=== PATIENT | male | born 1945 | race Caucasian/White ===

== ENCOUNTER 2019-11-13 20:45 | Observation (INO) | payer OTHER, SELFPAY ==
--- NOTE | ~2019-11-13 | CT_ITS ---
EXAMINATION: CT brain wo con, CT cervical spine wo con EXAM DATE: 11/13/2019 21:44 (accession [id number]), 11/13/2019 21:46 (accession [id number]) INDICATION: Syncope. Confusion. TECHNIQUE: Spiral CT of the head was performed without contrast. Axial, coronal and sagittal images were reviewed. Spiral CT of the cervical spine was performed without contrast. Axial images were rev iewed. Coronal and sagittal reformatted images were also reviewed. The dose-length product (DLP) fo r this examination was 681.00 (accession [id number]), 516.59 (accession [id number]) mGy-cm. The exposure was tailored according to patient size, and iterative reconstruction (ASIR) was used as additional dose reduction technique. There is no prior study for comparison. FINDINGS: HEAD CT: There is no acute intraparenchymal hemorrhage. No evidence of intraparenchymal brain mass l esion. No evidence of acute infarction. There is moderate periventricular and subcortical hypodensit y, nonspecific but probably related to small vessel ischemic disease. There is moderate prominence of the sulci and ventricles related to cerebral atrophy. There is intracranial carotid arterioscler osis. There is no mass effect or midline shift. There is no obstructive hydrocephalus suspected. T here are no extra-axial collections. There are no acute calvarial fractures. The orbits are unremar kable. Soft tissue is unremarkable. There is left mastoid effusion. CERVICAL CT: Mild emphysema. There is no evidence of acute cervical fracture. The odontoid process i s intact. Pre-dens space is normal. Prevertebral soft tissue is normal. There are no soft tissue a bnormalities identified. There is no disc space widening or traumatic vertebral body subluxation raymond pected. There is moderate to severe cervical disc disease and arthropathy. A detailed level by denny lewis evaluation of spondylosis can be added as addendum if requested. IMPRESSION: 1. No acute intracranial or cervical findings. 2. Age-related intracranial findings. 3. Cervical spondylosis. Reviewed, dictated and finalized at location A. IMPRESSION: 1. No acute intracranial or cervical findings. 2. Age-related intracranial findings. 3. Cervical spondylosis.
--- NOTE | ~2019-11-13 | XR_ITS ---
EXAMINATION: XR chest 1V portable EXAM DATE: 11/13/2019 21:45 INDICATION: Syncope. TECHNIQUE: Portable AP frontal chest x-ray was obtained. There is no prior study for comparison. FINDINGS: The lungs are clear. There are no pleural effusions. Cardiac silhouette is prominent but magnified on this AP technique. There is no pneumothorax suspected. There are bony degenerative ch anges. There is aortic arterial sclerosis. IMPRESSION: No acute cardiopulmonary findings. Reviewed, dictated and finalized at location A.
[2019-11-13 21:00] VITALS: BP 133/78; PULSE 63; RESP 22; TEMP 35.7; O2SAT 92
--- NOTE | 2019-11-13 21:00 | ECG_ITS ---
Measurements Intervals [place] Rate: 55 P: 71 GA: 161 QRS: 71 QRSD: 81 T: 61 QT: 447 QTc: 430 Interpretive Statements SINUS BRADYCARDIA ATRIAL PREMATURE COMPLEXES INCOMPLETE RIGHT BUNDLE BRANCH BLOCK DELAYED PRECORDIAL R/S TRANSITION BASELINE ARTIFACT- I, II, III, AVR, AVL, AVF, V1-V6 BORDERLINE ECG Electronically Signed On 11-14-2019 13:49:33 CDT by Demar Shelley D.O.
[2019-11-13] MEDS: SODIUM CHLORIDE 0.9% IV 1,000 ML 999 ML IV CONT (21:10)
[2019-11-13 21:21] LABS: Basophils Absolute Auto 0.02 K/mm3 (0.00-0.10); Basophils Percent Auto 0.2 % (0.0-1.0); Eosinophils Absolute Auto 0.02 K/mm3 (0.02-0.50); Eosinophils Percent Auto 0.2 % (1.0-6.0); Hematocrit 49.4 % (37.0-46.0); Hemoglobin 16.4 g/dL (12.4-15.3); Immature Granulocyte Absolute 0.05 K/mm3 (0.00-0.00); Immature Granulocyte Percent A 0.6 % (0.0-0.0); Lymphocytes Absolute Auto 0.84 K/mm3 (1.10-4.50); Lymphocytes Percent Auto 9.9 % (18.0-42.0); Mean Corpuscular HGB Conc 33.2 g/dL (32.0-36.0); Mean Corpuscular Hemoglobin 30.6 pg (27.0-31.0); Mean Corpuscular Volume 92.2 fL (78.0-102.0); Mean Platelet Volume 10.1 fl (8.7-11.0); Monocytes Absolute Auto 0.58 K/mm3 (0.10-0.90); Monocytes Percent Auto 6.8 % (2.0-11.0); Neutrophils Percent Auto 82.3 % (50.0-70.0); Platelet Count Result 140 K/mm3 (150-420); Red Blood Count 5.36 M/mm3 (4.70-6.10); Red Cell Distribution Width 13.4 % (11.6-14.4); White Blood Count 8.5 K/mm3 (4.8-10.8)
[2019-11-13 21:34] LABS: Partial Thromboplastin Time 27.9 SEC (22.3-31.6); Prothrombin Time 10.3 Seconds (9.64-11.0)
[2019-11-13 21:38] LABS: Influenza Control Valid (Valid)
[2019-11-13 21:43] LABS: Alanine Aminotransferase 47 U/L (16-63); Albumin Level 2.8 g/dL (3.4-5.0); Alkaline Phosphatase 111 U/L (46-116); Anion Gap 14.9 mmol/L (7-16); Aspartate Amino Transferase 78 U/L (15-37); Bilirubin,Total 0.6 mg/dL (0.00-1.00); Blood Urea Nitrogen 7 mg/dL (7-18); Calcium 8.2 mg/dL (8.5-10.1); Carbon Dioxide 28 mmol/L (21-32); Chloride 93 mmol/L (98-108); Creatine Kinase 214 U/L (39-308); Estimated Glomerular Filt Rate > 60; Glucose 88 mg/dL (70-99); Osmolality Calculated 271 mOsm/kg (285-295); Potassium 3.9 mmol/L (3.5-5.1); Sodium 132 mmol/L (136-145); Thyroid Stimulating Hormone 1.23 uIU/mL (0.36-3.74); Total Protein 6.4 g/dL (6.4-8.2)
[2019-11-13 21:44] LABS: Ammonia < 10 umol/L (11-32); Ethanol 222 mg/dL (0-6); Troponin I < 0.02 ng/mL (0.00-0.056)
--- NOTE | 2019-11-13 21:55 | ED.FALL ---
HPI - Fall General Chief Complaint: Fall Stated Complaint: amb Source: patient and EMS Mode of arrival: EMS Limitations: altered mental status History of Present Illness HPI Narrative: 74-year-old male that lives alone in an apartment that was some found on the floor by his landlord and EMS was called brought to the emergency department. Unsure of how the fall occurred, patient states that while on the floor he had opportunity and had some beers. Patient has a history of dementia, unsure of loss of consciousness, currently there is no fever chills no known injuries has good range of motion all extremities. Denies chest pain denies abdominal pain no shortness of breath no nausea vomiting no diarrhea constipation. The patient was discharged old and had the smell of urine and had urinated on himself as well. complaint: fall Onset (ago): hour(s) Fall from: out of bed Fall witnessed: no Place fall occurred: home Loss of consciousness: unsure Prolonged down time: yes and hour(s) Symptoms prior to fall: none Context: alcohol use Associated symptoms (after fall): weakness and confusion Related Data Home Medications Medication Instructions Recorded Confirmed diltiazem HCl 240 mg PO DAILY 11/13/19 11/13/19 donepezil 10 mg PO DAILY 11/13/19 11/13/19 folic acid 1 mg PO DAILY 11/13/19 11/13/19 hydrochlorothiazide 25 mg PO DAILY 11/13/19 11/13/19 potassium chloride 20 meq PO DAILY 11/13/19 11/13/19 pravastatin 40 mg PO DAILY 11/13/19 11/13/19 Allergies Allergy/AdvReac Type Severity Reaction Status Date / Time No Known Allergies Allergy Verified 11/13/19 21:15 Review of Systems Review of Systems: All systems reviewed & are unremarkable except as noted in HPI and below PMFSH Past Medical History Medical History COPD (chronic obstructive pulmonary disease) Dementia HLD (hyperlipidemia) HTN (hypertension) Exam Const: General: no acute distress and alert Limitations: altered mental status HENMT: Head: normal to inspection Eyes: Conjunctivae: conjunctivae normal Pupils: Equal, round and reactive pupils present Neck: Neck: normal visual inspection Chest: Chest palpation & inspection: normal inspection of the chest Resp: Effort & Inspection: normal respiratory effort Auscultation: diminished lung sounds Cardio: Rate: bradycardic GI: Auscultation: normal bowel sounds : Testes: Testes normal Urinary Catheter: Urinary Catheter: patent and draining and urine cloudy Skin: General skin exam: normal color Rashes: no rashes Neuro: General: moves all extremities, no meningeal signs and no focal motor deficits Extrem: General: normal to inspection Psych: Appearance: disheveled Thought content: Yes Normal thought content present Course Vital Signs Vital signs: Vital Signs Temperature 35.7 C L 11/13/19 21:00 Pulse Rate 63 11/13/19 21:00 Respiratory Rate 22 H 11/13/19 21:00 Blood Pressure 133/78 11/13/19 21:00 Pulse Oximetry 92 11/13/19 21:00 Temperature 35.7 C L 11/13/19 21:00 Pulse Rate 63 11/13/19 21:00 Respiratory Rate 22 H 11/13/19 21:00 Blood Pressure 133/78 11/13/19 21:00 Pulse Oximetry 92 11/13/19 21:00 - Fall Lab Data Result diagrams: 11/13/19 21:15 11/13/19 21:15 Labs: Lab Results 11/13/19 11/13/19 11/13/19 Range/Units 21:15 21:15 21:15 WBC 8.5 (4.8-10.8) K/mm3 RBC 5.36 (4.70-6.10) M/mm3 Hgb 16.4 H (12.4-15.3) g/dL Hct 49.4 H (37.0-46.0) % MCV 92.2 (78.0-102.0) fL MCH 30.6 (27.0-31.0) pg MCHC 33.2 (32.0-36.0) g/dL RDW 13.4 (11.6-14.4) % Plt Count 140 L (150-420) K/mm3 MPV 10.1 (8.7-11.0) fl Immature Gran % (Auto) 0.6 H (0.0-0.0) % Neut % (Auto) 82.3 H (50.0-70.0) % Lymph % (Auto) 9.9 L (18.0-42.0) % [place] % (Auto) 6.8 (2.0-11.0) % Eos % (Auto) 0.2 L (1.0-6.0) % Baso % (Auto)
[2019-11-13 22:07] VITALS: BP 115/62; PULSE 56; RESP 20; O2SAT 93
--- NOTE | 2019-11-13 22:26 | PC.NURSE ---
Pt daughter updated on pt status, pts daughter Nannette [phone]
[2019-11-13 22:35] VITALS: PULSE 62; RESP 20; O2SAT 92
[2019-11-13 22:49] VITALS: BP 101/33; PULSE 63; RESP 14; TEMP 35.9; O2SAT 90
--- NOTE | 2019-11-13 23:30 | PC.NURSE ---
Patient Admitted to room 207 from ER at 2255
[2019-11-14] VITALS (14 sets, daily range): BP systolic 111–143; BP diastolic 46–71; PULSE 58–126; RESP 18–22; TEMP 36.2–36.6; O2SAT 86–100; BMI 26.7
[2019-11-14] MEDS: SODIUM CHLORIDE 0.9% IV 1,000 ML 100 ML IV CONT (00:02)
[2019-11-14 00:16] LABS: Reflex Lactic Acid Yes or No Add Lactic
--- NOTE | 2019-11-14 00:30 | PC.NURSE ---
Bed alarm going off. Patient observed sitting at side of bed attempting to use urinal. Patient had already been incontinent and voided on the floor at bedside. Bodybuilder assisted the patient with using the urinal.
--- NOTE | 2019-11-14 01:00 | PC.NURSE ---
Patient very physically dirty. He states that he is able to bathe himself at home and that he bathes daily, but he has visibly dirty skin and a foul body odor, and under his fingernails are caked. Patient has matter dried and matted into his armstrong and his hair is very greasy. Disposition Clerk assisted patient with a bed bath and a shampoo cap. Patient tolerated bath well.
[2019-11-14 01:33] LABS: Appearance Urine Clear (Clear); Bilirubin Urine Negative (Negative); Color Urine Yellow (Yellow); Glucose Urine UA Negative (Negative); Ketones Urine Negative (Negative); Leukocyte Esterase Ur Negative LEU/UL (Negative); Nitrate Urine Negative (Negative); Protein Urine Negative (Negative); Specific Grav Ur <= 1.005 (1.010-1.020); Urobilinogen Urine 0.2 mg/dL (0.2-1.0)
[2019-11-14 01:38] LABS: Add Urine Microscopic? YES; Bacteria Urine Trace /hpf; Blood Urine Trace-Lysed (Negative); RBC Urine 0-2 /hpf (0-2); Squamous Epithelial Cell Urine None seen /hpf (Few); WBC Urine 0-3 /hpf (0-3)
[2019-11-14 01:58] LABS: Lactic Acid 3.2 mmol/L (0.4-2.0)
--- NOTE | 2019-11-14 02:00 | PC.NURSE ---
Patient resting in bed. Continuous IV fluids continue to infuse at 100 ml/hr.
--- NOTE | 2019-11-14 03:20 | PC.NURSE ---
IV found to be leaking. Continuous normal saline placed on pause. 20 gauge to the left AC was removed and a dressing was applied to the site. New access to be obtained.
--- NOTE | 2019-11-14 03:40 | PC.NURSE ---
22 gauge IV started in right wrist by Cherelle Chacon RN. IV Fluids are infusing at 100 ml/hr. Patient requires assistance with urinal use. He continues to miss the urinal and void on the bed and floor.
--- NOTE | 2019-11-14 03:47 | PC.NURSE ---
IV is noted to be leaking. Continuous normal saline placed on pause. 20 gauge to left AC was removed and a dressing was applied to the site.
--- NOTE | 2019-11-14 06:15 | PC.NURSE ---
Patient used urinal independently. Oxygen turned of and patient is now on room air.
--- NOTE | 2019-11-14 07:30 | PC.NURSE ---
Laying in bed, oriented to person and place, denies pain, no sob, diminished breath sounds noted, fluids infusing for hydration, bed alarm on for safety
[2019-11-14 08:08] LABS: Basophils Absolute Auto 0.02 K/mm3 (0.00-0.10); Basophils Percent Auto 0.2 % (0.0-1.0); Eosinophils Absolute Auto 0.01 K/mm3 (0.02-0.50); Eosinophils Percent Auto 0.1 % (1.0-6.0); Hematocrit 44.6 % (37.0-46.0); Immature Granulocyte Absolute 0.06 K/mm3 (0.00-0.00); Immature Granulocyte Percent A 0.7 % (0.0-0.0); Immature Platelet Fraction Pct 2.8 % (1.0-7.0); Lymphocytes Absolute Auto 0.83 K/mm3 (1.10-4.50); Lymphocytes Percent Auto 9.5 % (18.0-42.0); Mean Corpuscular HGB Conc 33.6 g/dL (32.0-36.0); Mean Corpuscular Hemoglobin 31.3 pg (27.0-31.0); Mean Corpuscular Volume 92.9 fL (78.0-102.0); Mean Platelet Volume 10.5 fl (8.7-11.0); Monocytes Percent Auto 6.9 % (2.0-11.0); Neutrophils Absolute Auto 7.2 K/mm3 (1.7-7.2); Neutrophils Percent Auto 82.6 % (50.0-70.0); Platelet Count Result 123 K/mm3 (150-420); Red Cell Distribution Width 13.4 % (11.6-14.4); White Blood Count 8.7 K/mm3 (4.8-10.8)
[2019-11-14 08:26] LABS: Estimated CRCL calculation 68 ml/min; Estimated Glomerular Filt Rate > 60
[2019-11-14 08:26] LABS: Magnesium 1.7 mg/dL (1.8-2.4)
[2019-11-14 08:27] LABS: Potassium 4.3 mmol/L (3.5-5.1); Sodium 138 mmol/L (136-145)
--- NOTE | 2019-11-14 08:30 | PC.NURSE ---
Sitting up on edge of bed eating breakfast, no distress noted, loose cough noted rare
[2019-11-14 08:34] LABS: Lactic Acid 2.2 mmol/L (0.4-2.0)
[2019-11-14 08:37] LABS: Calcium 7.9 mg/dL (8.5-10.1)
[2019-11-14 08:43] LABS: Blood Urea Nitrogen 7 mg/dL (7-18)
[2019-11-14 08:44] LABS: Anion Gap 18.3 mmol/L (7-16); Bilirubin,Total 0.6 mg/dL (0.00-1.00); Carbon Dioxide 26 mmol/L (21-32); Chloride 98 mmol/L (98-108); Glucose 53 mg/dL (70-99); Osmolality Calculated 281 mOsm/kg (285-295)
[2019-11-14 08:45] LABS: Alanine Aminotransferase 38 U/L (16-63); Albumin Level 2.6 g/dL (3.4-5.0); Alkaline Phosphatase 99 U/L (46-116); Aspartate Amino Transferase 59 U/L (15-37); Creatine Kinase 161 U/L (39-308); Total Protein 5.7 g/dL (6.4-8.2); Troponin I < 0.02 ng/mL (0.00-0.056)
--- NOTE | 2019-11-14 09:09 | PC.NURSE ---
Up with assist of 1, used walker to get to bathroom for BM
--- NOTE | 2019-11-14 09:29 | PC.NURSE ---
returned to bed with 1 assist and use of wheeled walker, steady gait, had large BM, refuses medication right now, wants to rest
[2019-11-14] MEDS: MAGNESIUM SULF 2 GM/WATER 50ML 2 GM/50 ML BAG IVPB (09:53)
[2019-11-14] MEDS: DONEPEZIL HCL 5 MG TABLET 10 MG PO (09:54)
[2019-11-14] MEDS: FOLIC ACID 1 MG TABLET PO (09:54)
[2019-11-14] MEDS: hydroCHLOROthiazide 25 MG TABLET PO (09:54)
[2019-11-14] MEDS: POTASSIUM CHLORIDE 20 MEQ TABLET PO (09:54)
[2019-11-14 09:59] LABS: Ethanol 67 mg/dL (0-6)
--- NOTE | 2019-11-14 10:35 | PC.NURSE ---
Nappign off and on denies needs
--- NOTE | 2019-11-14 11:46 | PC.NURSE ---
Up on own and ambulated with walker to bathroom, gait steady
--- NOTE | 2019-11-14 12:00 | PC.NURSE ---
Eating lunch, sitting up on edge of bed, denies needs, able to feed self, no trouble swallowing
--- NOTE | 2019-11-14 13:40 | PC.NURSE ---
PT here to evaluate patient
--- NOTE | 2019-11-14 14:07 | PC.NURSE ---
Daughter Nannette called to check on patient, will be here to take him home when gets off work
--- NOTE | 2019-11-14 14:08 | PM.IMHP ---
H&P: HPI History of Present Illness Chief complaint: amb Narrative: Candelario Griffiths is a 74 year old male admitted yesterday due to falling at home from bed (no witness to his fall) and altered mental status. He arrived via EMS ambulance. His landlord found him on the floor and is unsure of how long he was there. Candelario was intoxicated with weakness and confusion at ED admission. He lives alone, his daughter Nannette is his POA and lives in [place]. Unsure of how the fall occurred, patient states that while on the floor he had opportunity and had some beers. Patient has a history of dementia, unsure of loss of consciousness, currently there is no fever chills no known injuries has good range of motion all extremities. Denies chest pain denies abdominal pain no shortness of breath no nausea vomiting no diarrhea constipation. The patient had the smell of urine and had urinated on himself as well. Today the patient said that he fell at home when he was sitting at his kitchen table and was getting up, when his foot got caught on the table leg, and he tripped and fell. Candelario is feeling well and hopes to go home later today. He still has difficulty knowing what month or the date is, knows that he is in a hospital, knows his daughter Nannette takes care of him, and knows that he has personal care helpers coming to his home 2-4 times a week to help him with laundry and meals. Candelario has very little activity at home with a small area of living space per patient's daughter report to [employer]. He has a chronic history of alcohol abuse. Ordered banana bag and 2gm Mag for replenishment. Ordered PT/OT evaluation. When ambulating in his hospital room, to and from the bathroom, toileting, and with getting dressed - he denies chest pain or shortness of breath. Ordered 6 min walk and orthostatic BPs. Review of Systems Review of Systems: All systems reviewed & are unremarkable except as noted in HPI and below ROS unobtainable: Yes unobtainable due to mental status (advanced dementia) Constitutional: Constitutional: Reports as per HPI, Denies body ache(s), Denies chills, Denies difficulty sleeping, Denies excessive sweating, Reports fatigue, Denies headache(s), Denies increased appetite, Denies lethargy, Denies night sweats, Denies snoring, Reports weakness and Denies weight gain Eyes: Eyes: Reports as per HPI, Denies blurry vision, Denies exophthalmos, Denies diplopia, Denies floaters, Denies loss of peripheral vision and Denies photophobia ENT: Reports as per HPI, Denies Normal hearing present, Denies dysphagia, Denies facial pain, Denies headache(s), Denies epistaxis, Denies nasal congestion, Denies nasal discharge, Denies odynophagia and Denies tinnitus Comments: very hard of hearing Cardiovascular: Cardiovascular: Reports as per HPI, Denies chest pain, Denies diaphoresis, Denies pedal edema, Denies leg edema, Denies lightheadedness and Denies palpitations Respiratory: Respiratory: Reports as per HPI, Denies chest congestion, Denies cough, Denies hemoptysis, Denies dyspnea, Denies dyspnea on exertion, Denies snoring and Denies wheezing Gastrointestinal: Gastrointestinal: Reports as per HPI, Denies abdominal pain, Denies melena, Denies bloating, Denies hematochezia, Denies constipation, Denies heartburn, Denies diarrhea, Denies nausea, Denies odynophagia, Denies vomiting and Denies hematemesis Genitourinary: Genitourinary: Reports as per HPI, Denies hematuria, Denies dysuria, Denies flank pain, Denies urinary frequency, Denies urinary hesitancy, Reports urinary incontinence and Denies urinary urgency Musculoskeletal: Musculoskeletal: Reports as per HPI, Denies back pain, Denies myalgias, Denies arthralgias, Denies joint swelling, Denies neck pain and Reports stiffness (chronic) Integumentary/Breasts: Skin/Breast: Reports as per HPI, Denies dry skin, Denies pruritus, Denies erythema, Denies rash, Denies skin pain and Denies unusual bruising Neurologic: Reports as per
--- NOTE | 2019-11-14 14:38 | PC.NURSE ---
No dizzyness with position change, no pain
--- NOTE | 2019-11-14 14:38 | PC.NURSE ---
Cardio here and performing 6 minute walk
--- NOTE | 2019-11-14 14:57 | HOMEO2EVAL ---
Home Oxygen Evaluation RC: Home Oxygen (O2) Evaluation Start: 11/14/19 14:51 Freq: Status: Active Protocol: RPE Activity Type Activity Date Activity User E-Sign Co-Sign Detail Recorded Client Recorded Date Recorded By Document 11/14/19 14:30 [facility] [id number] 11/14/19 14:57 [facility] Document 11/14/19 14:35 [facility] [id number] 11/14/19 14:57 [facility] Document 11/14/19 14:41 [facility] [id number] 11/14/19 14:57 [facility] Document 11/14/19 14:45 [facility] [id number] 11/14/19 14:57 [facility] 11/14/19 11/14/19 11/14/19 14:30 14:35 14:41 Home O2 Evaluation Test Phase Resting Exercise Resting Oxygen Delivery Room Air Room Air Nasal Cannula Oxygen Flow Rate (L/min) 0 2 Pulse Oximetry (90-100 %) 92 86 L 95 Pulse Rate (60-100 beats/min) 94 126 H 100 Activity Tolerance Poor Rating of Perceived Dyspnea (PD) +4 Severe Difficulty, Participant Cannot Continue Rate of Perceived Exertion (PE) 15 Hard Ambulation Distance (feet) 150 Home Oxygen Evaluation Comments Pt desaturated after walking 150 ft. Rested 6 minutes. Placed on O2 at 2 LPM Treatment Charges O2 Evaluation 11/14/19 14:45 Home O2 Evaluation Test Phase Exercise Oxygen Delivery Nasal Cannula Oxygen Flow Rate (L/min) 2 Pulse Oximetry (90-100 %) 94 Pulse Rate (60-100 beats/min) 114 H Activity Tolerance Fair Rating of Perceived Dyspnea (PD) +2 Mild, Some Difficulty, Noticeable to the Observer Rate of Perceived Exertion (PE) 12 Ambulation Distance (feet) 150 Home Oxygen Evaluation Comments Pt walked to room on 2LPM nasal cannula with SPO2 greater than 92 % Treatment Charges
--- NOTE | 2019-11-14 15:28 | PC.NURSE ---
Alert aware of surroundings, using call light, assisted up to bathroom, used walker and steady gait noted
[2019-11-14 15:34] LABS: Phosphorus 3.3 mg/dL (2.6-4.7)
--- NOTE | 2019-11-14 15:34 | PM.DS ---
DS: Diagnosis Admitting Diagnosis Admitting Diagnosis: Hyperlipidemia, unspecified Discharge Diagnosis (1) Acute dehydration: Code(s): E86.0 - Dehydration Status: Acute Assessment and Plan: elevated CBC at admission and Tachycardic received 1 L IVFs yesterday ordered 1 L Banana Bag today + 2 gm Mag IV replenishment encouraging oral hydration Creatinine stable 0.82 with GFR>60. PT/OT evaluation ordered ordered 6 min walk Orthostatics BPs stable with HR slightly elevated on standing. continue home meds: Diltiazem, Aricept, Folic Acid, HCTZ, KCL, Pravastatin. (2) Alcohol intoxication: Qualifiers: Complication of substance-induced condition: uncomplicated Qualified Code(s): F10.920 - Alcohol use, unspecified with intoxication, uncomplicated Code(s): F10.929 - Alcohol use, unspecified with intoxication, unspecified Status: Acute Assessment and Plan: encouraging oral intake of hydration and nutrition no N/V/Diarrhea or constipation his ethanol level improved from 222 to 67. His daughter and POA will pick him up at discharge time later today and stay with him overnight. included AA meeting information for him in his discharge instructions for the local meeting nearest him. (3) Dementia: Code(s): F03.90 - Unspecified dementia without behavioral disturbance Status: Acute Assessment and Plan: Continue to maximize home care and home assistance. patient may benefit from 24-7 hour care keep hydrated, provide additional nutritional supplements. provide additional assistance such as walker and cane. (4) COPD (chronic obstructive pulmonary disease): Code(s): J44.9 - Chronic obstructive pulmonary disease, unspecified Status: Acute Assessment and Plan: Untreated COPD. started him on Albuterol inhaler and Advair inhaler for him to take home and use daily. [facility], get a pulmonary function test and ECHO. dyspnea noted on his 6 minute walk but stable when walking in his room and to/from restroom (approximately 10 feet) 6 min. walk showed need for 2 LPM after walking 150 feet with desat to 86-88%. Due to patient's minimal distance at home and signicantly high risk for falling at home - will defer ordering Home O2 to his Primary Care Physician at this time. (5) Fall: Code(s): W19.XXXA - Unspecified fall, initial encounter Status: Acute Assessment and Plan: Fall likely due to dehydration and alcohol intoxication. treated with IVFs and hydration inpatient PT/OT evaluation and treat ordering oupatient PT/OT at discharge encouraged patient to find cane and use it or get a walker to assist with ambulation further cardiac and pulmonary work up to be completed on outpatient basis with PCP [facility] due to [facility]'s [facility] and providers. ordered 6 min walk Orthostatics BPs stable with HR slightly elevated on standing. DS: Summary Time Spent with Patient Time attestation: Total time spent providing and/or coordinating discharge services:>60 min Exam Const: General: comfortable, no acute distress, alert and confusion; No in distress or uncomfortable Orientation/consciousness: confusion Limitations: altered mental status HENMT: Head: normal to inspection General nose exam: Normal nares present Mouth: Yes moist mucous membranes Eyes: General: appearance normal, both eyes and all related structures Conjunctivae: conjunctivae normal Sclera: sclerae normal Pupils: Equal, round and reactive pupils present EOM: EOMs intact bilaterally Direct Ophthalmoscopy: No photophobia Neck: Neck: normal visual inspection, no meningeal signs and No no JVD Carotids: no bruits Chest: Chest palpation & inspection: normal inspection of the chest Resp: Effort & Inspection: normal respiratory effort Auscultation: clear to auscultation bilaterally, no crackles, no rales, no rhonchi and no wheezes Cardio:
[2019-11-14] MEDS: SALMET XINAFT/FLUTIC PROPIN 250 MCG/50 MCG INH CAP 1 PUFF INHALATION (15:42)
--- NOTE | 2019-11-14 16:59 | PC.NURSE ---
Refuses dinner, states not hungry, states he just ate lunch, did eat well for lunch, no needs voiced, waiting on daughter to arrive for dc home
--- NOTE | 2019-11-14 17:39 | PC.NURSE ---
Resting in bed, waiting on daughter to arrive for ride home
--- NOTE | 2019-11-14 18:01 | PC.NURSE ---
Up in room, denies needs, saline lock and telemetry unit discontinued, awaiting daughter to arrive for ride home
--- NOTE | 2019-11-14 18:10 | PC.NURSE ---
Discharged via wheel chair with daughter to home, medications sent with patient and packet reviewed with daughter
--- NOTE | 2019-11-14 20:52 | PM.EVENT ---
Event Note Event Note Event Note: Patient complains that he is unable to sleep well because he is frequently awakened by staff. Denies pain. Denies prior seizures. Alert but oriented only to date of and year. Regular rate without murmur or gallop. Lungs are clear to auscultation and has no respiratory distress. Abdomen is soft and nontender. Extremities are warm dry and pink. Patient to have banana bag and some magnesium before discharge. PT OT evaluation would be prudent. I have reviewed the chart and examined the patient. I discussed the patient's care with A Dank MANSFIELD and agree with her assessment and plan.
--- NOTE | 2019-11-19 13:00 | PC.NURSE ---
DISCHARGE FOLLOW UP CALL: States he is feeling better. Staying hydrated, not drinking any of that hard stuff. D/C instructions were clear. Has not been able to start outpatient PT/OT because [facility] transit was closed. Admission stay was great .
== END 2019-11-14 18:20 | disposition home or self-care (01) ==
LOC: CHSED 22:04 → CHS2ND 22:15
PROVIDERS: Emergency Medicine; Nurse Practitioner; Admitting Provider Emergency Medicine; Emergency Provider Emergency Medicine; Visit Provider Emergency Medicine
DX: E86.0 Dehydration (principal); F03.90 Unspecified dementia, unspecified severity, without behavioral disturbance, psychotic disturbance, mood disturbance, and anxiety; J44.9 Chronic obstructive pulmonary disease, unspecified; F10.129 Alcohol abuse with intoxication, unspecified; F17.210 Nicotine dependence, cigarettes, uncomplicated; Z91.81 History of falling; M47.812 Spondylosis without myelopathy or radiculopathy, cervical region
CPT/HCPCS: 36415; 70450; 71045; 72125; 80053; 80307; 81001; 82140; 82550; 83605; 83735; 84100; 84443; 84484; 85025; 85055; 85610; 85730; 87040; 87804; 93005; 94618; 96360; 96361; 96365; 96366; 96367; 97161; 97165; 99283; 99285; A9270; G0378; G0379; J3411; J3475; J7030; J7121

== ENCOUNTER 2021-09-01 11:40 | Inpatient (IN) | payer OTHER, MEDICARE, SELFPAY ==
[2021-09-01] VITALS (7 sets, daily range): BP systolic 86–156; BP diastolic 42–100; PULSE 82–115; RESP 18–26; TEMP 34.3–36; O2SAT 86–99
--- NOTE | ~2021-09-01 | XR_ITS ---
XR chest 1V portable DATE: 09/03/2021 06:08 INDICATION: Hypoxia TECHNIQUE: Portable upright AP chest on 09/03/2021 at 0604 hours COMPARISON: portable AP chest FINDINGS: There is left mid and lower lung infiltrate and/or atelectasis and volume loss of the left lung compared to the right, with mild leftward shift of heart and mediastinum. There is mild infiltrate or atelectasis at the right lung base. The lungs are otherwise hyperinflated suggesting obstructive airways disease. Borderline or increased heart size. Aortic calcification. No pulmonary vascular congestion or pneumot horax. No definite pleural effusion. Diffuse osteopenia. IMPRESSION: Left mid and particularly lower lung infiltrate and/atelectasis Mild volume loss of left lung with mild leftward shift of heart and mediastinum; consider CT thorax e valuate for possible endobronchial lesion Mild infiltrate or atelectasis at right lung base Bilateral hyperinflation suggesting obstructive airways disease Borderline or increased heart size Aortic atherosclerosis Osteopenia Reviewed, dictated and finalized at location A. HOUSE ORDER SELECTOR IMPRESSION: Left mid and particularly lower lung infiltrate and/atelectasis Mild volume loss of left lung with mild leftward shift of heart and mediastinum ; consider CT thorax evaluate for possible endobronchial lesion Mild infiltrate or atelectasis at right lung base Bilateral hyperinflation suggesting obstructive airways disease Borderline or increased heart size Aortic atherosclerosis Osteopenia
--- NOTE | ~2021-09-01 | US_ITS ---
EXAMINATION: US arterial ankle brachial ind DATE: 09/02/2021 14:36 INDICATION: Peripheral vascular disease. TECHNIQUE: Segmental pressures and plethysmographic and Doppler waveforms of the brachial and lower e xtremity arteries were obtained. COMPARISON: None. FINDINGS: Right and left brachial artery pressures of 110 mm Hg and 119 mm Hg, respectively, are concordant (no rmal difference <= 30 mmHg). The right ankle-brachial index (KALI) is 0.71 (normal >= 0.9-1.0). The right great toe-brachial index (TBI) is 0.61 (normal >= 0.65). Arterial Doppler waveforms are biphasic with brisk systolic upstrokes at both the right posterior tibial and dorsalis pedis arteries. No dopplerable pulse nor discernible flow on color Doppler in either the right posterior tibial does produce arteries. No discernible pulse at the left great toe. IMPRESSION: 1. No evident arterial flow at the left great toe or at the left dorsalis pedis or posterior tibial a rteries consistent with more proximal either occlusive peripheral vascular disease or thrombosis. Dr. Pyle discussed these findings with Angel Velasquez at 2:53 PM. 2. Moderate arterial occlusive disease to the right lower limb with moderately decreased right KALI. Reviewed, dictated and finalized at location A. D GOODS STOCK CLERK IMPRESSION: 1. No evident arterial flow at the left great toe or at the left dorsalis pedis or posterior tibial arteries consistent with more proximal either occlusive pe ripheral vascular disease or thrombosis. Dr. Pyle discussed these findings with Angel Velasquez at 2:53 PM. 2. Moderate arterial occlusive disease to the right lower limb with moderately decreased right KALI.
--- NOTE | ~2021-09-01 | CT_ITS ---
EXAMINATION: CT brain wo con DATE: 09/01/2021 12:33 INDICATION: Fall TECHNIQUE: Computed tomography (CT) of the head was performed without intravenous contrast. The mA wa s adjusted according to patient size. Iterative reconstruction technique was employed. Exam dose: 68 1.00 mGy-cm total exam DLP. COMPARISON: 11/13/2019 CT brain FINDINGS: There is vertebral basilar and bilateral carotid siphon internal carotid artery calcificati on. There is nonspecific diminished attenuation of the cerebral white matter, likely due to chronic small vessel ischemic changes. There is central and cortical cerebral and cerebellar atrophy. No intracranial mass lesion or hemorrhage or cerebrovascular accident. No midline shift or mass effec t. No subdural or epidural hematoma. No orbital mass lesion is evident. Minimal left mastoid effusions. The mastoid air cells and paranasal sinuses are otherwise unremarkabl e. No fracture or bone destruction of the cranial vault. IMPRESSION: Cerebral atherosclerosis and chronic small vessel ischemic changes of the cerebral white matter Central and cortical cerebral and cerebellar volume loss No acute intracranial finding Reviewed, dictated and finalized at [facility]. Reviewed, dictated and finalized at location A. E MACHINE HEATER
[2021-09-01] MEDS: SODIUM CHLORIDE 0.9% IV 1,000 ML 999 ML IV CONT ×3 (11:40→14:05)
--- NOTE | 2021-09-01 11:51 | ECG_ITS ---
Measurements Intervals [place] Rate: 117 P: [place]: 0 QRS: 74 QRSD: 78 T: 67 QT: 319 QTc: 447 Interpretive Statements SINUS TACHYCARDIA FREQUENT ATRIAL PREMATURE COMPLEXES CANNOT RULE OUT SEPTAL INFARCT, AGE INDETERMINATE BASELINE ARTIFACT- I, II, III, AVR, AVL, AVF, V1-V6 ABNORMAL ECG Electronically Signed On 09-01-2021 12:42:19 [employer] by Demar Shelley D.O.
[2021-09-01 12:30] LABS: Add Urine Microscopic? YES; Appearance Urine Clear (Clear); Bilirubin Urine 2+ (Negative); Blood Urine Negative (Negative); Color Urine Dark Yellow (Yellow); Glucose Urine UA Negative (Negative); Ketones Urine Negative (Negative); Leukocyte Esterase Ur Trace (Negative); Nitrate Urine Negative (Negative); Protein Urine Negative (Negative); Specific Grav Ur >= 1.030 (1.010-1.020); Urobilinogen Urine 0.2 mg/dL (0.2-1.0)
[2021-09-01 12:31] LABS: Basophils Absolute Auto 0.05 K/mm3 (0.00-0.10); Basophils Percent Auto 0.3 % (0.0-1.0); Hematocrit 70.7 % (37.0-46.0); Hemoglobin 20.8 g/dL (12.4-15.3); Immature Granulocyte Absolute 0.11 K/mm3 (0.00-0.00); Immature Granulocyte Percent A 0.6 % (0.0-0.0); Immature Platelet Fraction Pct 7.5 % (1.0-7.0); Lymphocytes Absolute Auto 0.82 K/mm3 (1.10-4.50); Lymphocytes Percent Auto 4.6 % (18.0-42.0); Mean Corpuscular HGB Conc 29.4 g/dL (32.0-36.0); Mean Corpuscular Hemoglobin 29.5 pg (27.0-31.0); Mean Corpuscular Volume 100.4 fL (78.0-102.0); Monocytes Absolute Auto 1.96 K/mm3 (0.10-0.90); Monocytes Percent Auto 10.9 % (2.0-11.0); Neutrophils Percent Auto 83.6 % (50.0-70.0); Nucleated Red Blood Cells Absolute Auto 0.03 K/mm3 (0.00-0.00); Nucleated Red Blood Cells Perc 0.2 % (0-0.0); Platelet Count Result 212 K/mm3 (150-420); Red Blood Count 7.04 M/mm3 (4.70-6.10); Red Cell Distribution Width 16.2 % (11.6-14.4); White Blood Count 17.9 K/mm3 (4.8-10.8)
[2021-09-01 12:39] LABS: INR 1.5; Partial Thromboplastin Time 35.9 SEC (23.90-30.70); Prothrombin Time 15.9 Seconds (9.50-12.10)
[2021-09-01 12:42] LABS: Amorphous Sediment Urine Moderate; Bacteria Urine Trace /hpf; RBC Urine None seen /hpf (0-2); WBC Urine None seen /hpf (0-3)
[2021-09-01 12:46] LABS: Albumin Level 2.5 g/dL (3.4-5.0); Alkaline Phosphatase 150 U/L (46-116); Aspartate Amino Transferase 34 U/L (15-37); Bilirubin,Total 2.9 mg/dL (0.00-1.00); Calcium 10.2 mg/dL (8.5-10.1); Carbon Dioxide 18 mmol/L (21-32); Chloride 118 mmol/L (98-108); Creatine Kinase 531 U/L (39-308); Estimated Glomerular Filt Rate 4; Glucose 97 mg/dL (70-99); Potassium 4.3 mmol/L (3.5-5.1)
[2021-09-01 12:54] LABS: Lactic Acid Reflex 14.1 mmol/L (0.4-2.0)
[2021-09-01 13:01] LABS: SARS-CoV-2 RNA PCR Negative (Negative)
--- NOTE | 2021-09-01 13:15 | PC.NURSE ---
Lab called with sodium of 167. Creatinine of 11.75. Dr. Starkey notified.
[2021-09-01 13:16] LABS: Anion Gap 31 mmol/L (8-16); Blood Urea Nitrogen > 150 mg/dL (7-18); Osmolality Calculated 393 mOsm/kg (285-295); Sodium 167 mmol/L (136-145)
[2021-09-01 13:17] LABS: Alanine Aminotransferase 31 U/L (16-63); CRP > 25.0 mg/dL (0.0-0.9)
--- NOTE | 2021-09-01 13:21 | PC.NURSE ---
Daughter called and states she is on her way to the hospital. Pt notified.
[2021-09-01 13:24] LABS: NT Pro B Type Natriuretic Pept 3101 pg/mL (0-450)
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
--- NOTE | 2021-09-01 14:11 | PC.NURSE ---
Eusebio with [facility] called asking if he could come up and have the patient sign papers. [employer] informed Eusebio that pt is unable to sign paperwork at this time. Eusebio asked for an update and lead technical writer informed him he would need to contact family for any updates.
--- NOTE | 2021-09-01 14:53 | PC.NURSE ---
family here, awaiting update from dr monteiro and to see pt.
--- NOTE | 2021-09-01 15:18 | PC.NURSE ---
daughter here (maria isabel) with exwife (leigha) to see pt. dr monteiro discussed plan of care with family
[2021-09-01 15:23] LABS: Reflex Lactic Acid Yes or No Add Lactic
[2021-09-01] MEDS: DEXTROSE 5% 1,000 ML 1,000 ML 100 ML IV CONT (15:58)
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
[2021-09-01 16:05] LABS: Lactic Acid 4.7 mmol/L (0.4-2.0)
--- NOTE | 2021-09-01 17:21 | PC.NURSE ---
multiple photos uploaded to chart for record of uncleanliness and poor care of pt prior to arrival to er
[2021-09-01] MEDS: SALMET XINAFT/FLUTIC PROPIN 250 MCG/50 MCG INH CAP 1 PUFF INHALATION (19:19)
--- NOTE | 2021-09-01 19:23 | ADMGEN ---
This patient, Candelario Clmeents, was admitted to 2nd Floor Room 207-1. Patient/family oriented to hospital policies and general routines including ID bracelet, bed and alarms, visiting hours, pain management, procedures, bathroom and other care routines, personal items, smoking policy, room service/diet, and visiting hours. Information on how to activate the Rapid Response Team has been discussed. Patient/Family are encouraged to report perceived risks to care and to ask questions if they do not understand what they are told or what they should do. 1600 admit to room 207. he is here with elevated troponin and Rhabdomyolysis. he is very unkempt. he is hard to understand.call light in reach and use explained.
[2021-09-02] VITALS (10 sets, daily range): BP systolic 104–151; BP diastolic 62–79; PULSE 54–112; RESP 15–54; TEMP 35.5–36.6; O2SAT 91–98
[2021-09-02] MEDS: DEXTROSE 5%/LACTATED RINGERS 1,000 ML 100 ML IV CONT (00:36)
--- NOTE | 2021-09-02 00:42 | PC.NURSE ---
Patient complaining of BLE pain. Both BLE are dusky and cool to the touch. Patient stated his feet feel like burning up . Dr. Starkey notified. Patient has new order for tylenol every 6 hours PRN. Patient aware of new order. Difficult to determine patient's level of comprehension.
[2021-09-02] MEDS: ACETAMINOPHEN 500 MG TABLET 1000 MG (00:48)
[2021-09-02 05:36] LABS: Hematocrit 61.4 % (37.0-46.0); Immature Platelet Fraction Pct 7.1 % (1.0-7.0); Mean Corpuscular HGB Conc 30.9 g/dL (32.0-36.0); Mean Corpuscular Hemoglobin 29.9 pg (27.0-31.0); Mean Corpuscular Volume 96.5 fL (78.0-102.0); Mean Platelet Volume 14.2 fl (8.7-11.0); Platelet Count Result 131 K/mm3 (150-420); Red Blood Count 6.36 M/mm3 (4.70-6.10); Red Cell Distribution Width 14.7 % (11.6-14.4); White Blood Count 16.3 K/mm3 (4.8-10.8)
[2021-09-02] MEDS: SALMET XINAFT/FLUTIC PROPIN 250 MCG/50 MCG INH CAP 1 PUFF INHALATION ×2 (05:54→19:13)
[2021-09-02 06:03] LABS: Lactic Acid Reflex 3.6 mmol/L (0.4-2.0)
[2021-09-02 06:12] LABS: Alanine Aminotransferase 34 U/L (16-63); Alkaline Phosphatase 124 U/L (46-116); Anion Gap 17 mmol/L (8-16); Aspartate Amino Transferase 75 U/L (15-37); Bilirubin,Total 2.4 mg/dL (0.00-1.00); Calcium 8.8 mg/dL (8.5-10.1); Carbon Dioxide 27 mmol/L (21-32); Chloride 116 mmol/L (98-108); Estimated CRCL calculation 5 ml/min; Estimated Glomerular Filt Rate 5; Glucose 116 mg/dL (70-99); NT Pro B Type Natriuretic Pept 3270 pg/mL (0-450); Potassium 4.8 mmol/L (3.5-5.1); Sodium 160 mmol/L (136-145); Total Protein 6.6 g/dL (6.4-8.2)
--- NOTE | 2021-09-02 06:15 | PC.NURSE ---
Dr. Starkey notified of pt's critical creatinine value; No new orders at this time.
[2021-09-02 06:19] LABS: Blood Urea Nitrogen > 150 mg/dL (7-18)
[2021-09-02 06:20] LABS: Creatine Kinase 1971 U/L (39-308); Osmolality Calculated 380 mOsm/kg (285-295)
--- NOTE | 2021-09-02 07:02 | ECG_ITS ---
Measurements Intervals [place] Rate: 109 P: IN: 0 QRS: 77 QRSD: 66 T: 75 QT: 327 QTc: 442 Interpretive Statements MULTIFOCAL ATRIAL TACHYCARDIA ATRIAL COUPLET AND ATRIAL PREMATURE COMPLEXES LOW QRS VOLTAGE IN PRECORDIAL LEADS ANTEROSEPTAL INFARCT, AGE INDETERMINATE BASELINE ARTIFACT- I, III, AVL, AVF, V3-V5 ABNORMAL ECG Electronically Signed On 09-02-2021 7:57:08 PUBLIC HEALTH PROFESSOR by Demar Shelley D.O.
[2021-09-02 07:42] LABS: Band Neutrophils Percent 0 % (0-6); Basophils Percent Manual 0 % (0-1); Eosinophils Percent Manual 0 % (1-6); Lymphocytes Absolute Manual 1.14 K/mm3 (1.1-4.5); Lymphocytes Percent Manual 7 % (18-44); Monocytes Percent Manual 8 % (3-9); Neutrophils Absolute Manual 13.85 K/mm3 (1.3-6.7); Neutrophils Percent Manual 85 % (46-73); Nucleated Red Blood Cells 2 %; Total Cells Counted 100
[2021-09-02 07:43] LABS: Platelet Estimate Adequate (Adequate)
[2021-09-02 08:27] LABS: Reflex Lactic Acid Yes or No Add Lactic
[2021-09-02] MEDS: DEXTROSE 5%/0.45% SOD CHL 1,000 ML 150 ML IV CONT ×2 (09:19→19:13)
[2021-09-02] MEDS: DONEPEZIL HCL 5 MG TABLET 10 MG PO (09:19)
[2021-09-02] MEDS: FOLIC ACID 1 MG TABLET PO (09:20)
[2021-09-02] MEDS: POTASSIUM CHLORIDE 20 MEQ TABLET PO (09:20)
[2021-09-02] MEDS: PRAVASTATIN SODIUM 20 MG TABLET 40 MG PO (09:20)
--- NOTE | 2021-09-02 13:54 | PM.IMHP ---
H&P: HPI History of Present Illness Date/Time: 09/02/21 13:54 Candelario Clements is a 76 year old male who was admitted yesterday evening for Hypernatremia, Rhabdomyolysis, Sepsis, Acute Renal Failure, Elevated BNP. In addition to the ER report I was informed that the Pt was found covered in feces and has home health visits 6 times per week. Pt was found by EMS on the floor for unknown down time and was cold to the touch. It is very difficulty to understand the Pt as he mumbles. Occasionally, he can be understood but it is more of a guess. Anticipate this improving as treatment progresses. Chief Complaint: Weakness, AMS, Physical Limitation Review of Systems Review of Systems: ROS unobtainable: Yes unobtainable due to medical condition PMFSH Past Medical History Medical History (Updated 09/02/21 @ 15:14 by SAEED Mayfield) COPD (chronic obstructive pulmonary disease) Dementia HLD (hyperlipidemia) HTN (hypertension) Social History Social History Smoking packs per day: 1.5 Smoking cigarettes per day: 30.0 Smoking status: Current every day smoker Tobacco type: cigarettes Second hand tobacco smoke exposure: Yes Alcohol intake: current Drinks per week: 2 Substance use: current Substance use type: does not use Spiritual care concerns: No Meds Home Medications and Allergies Home Medications Medication Instructions Recorded Confirmed Type diltiazem HCl 240 mg PO DAILY 11/13/19 09/01/21 History donepezil 10 mg PO DAILY 11/13/19 09/01/21 History folic acid 1 mg PO DAILY 11/13/19 09/01/21 History hydrochlorothiazide 25 mg PO DAILY 11/13/19 09/01/21 History potassium chloride 20 meq PO DAILY 11/13/19 09/01/21 History pravastatin 40 mg PO DAILY 11/13/19 09/01/21 History albuterol sulfate [Proventil HFA] 2 puff INHALATION QIDRT PRN 30 11/14/19 09/01/21 Rx Days gm fluticasone propion-salmeterol 1 puff INHALATION Q12HRT 30 Days 11/14/19 09/01/21 Rx [Advair Diskus] each Allergies Allergy/AdvReac Type Severity Reaction Status Date / Time No Known Allergies Allergy Verified 12/18/19 15:34 Vital Signs Vital Signs - 24 hr 09/01/21 14:00 09/01/21 15:36 09/01/21 16:00 Temperature 95.6 F L 94.8 F L 96.8 F L Pulse Rate 83 92 82 Respiratory Rate 20 20 18 Blood Pressure 106/90 98/62 L 88/42 L Pulse Oximetry 89 L 96 97 09/01/21 20:00 09/02/21 00:00 09/02/21 03:57 Temperature 98 F 97.7 F Pulse Rate 102 H 60 Respiratory Rate 18 20 54 H Blood Pressure 156/100 H 151/73 H 110/79 Pulse Oximetry 99 98 97 09/02/21 04:00 Temperature Pulse Rate 54 L Respiratory Rate Blood Pressure Pulse Oximetry Exam Const: General: cooperative, comfortable, no acute distress, well developed, alert, awake and tired appearing Nutritional Appearance: underweight Limitations: other limitations (communication, Pt mumbles) HENMT: Ears: hearing grossly impaired Mouth: Yes other (xerostomia) Eyes: General: appearance normal, both eyes and all related structures Alignment and Position: alignment normal Eyelids: eyelids normal Resp: Effort & Inspection: normal respiratory effort Auscultation: clear to auscultation bilaterally Cardio: Rhythm: abnormal rhythm (A fib) irregularly irregular GI: GI Palp: Yes Soft to palpation and Yes Guarding due to palpation present (GI) (Pt nods do you have pain and does it tickle with touch. ) Auscultation: Hypoactive bowel sounds present Urinary Catheter: Urinary Catheter: patent and draining and urine dark Skin: General skin exam: other (varrious excoriated areas, see nurse picture documentation, extensive) Neuro: General: oriented to person Cranial nerves: Yes hard of hearing Speech: Abnormal speech present garbled Gait exam (Neuro): Unable to assess gait Extrem: General: no pedal edema and no calf tenderness Right lower extremity: lower leg (cold to touch), ankle (pulses not palpable) and foot (C
[2021-09-02 14:59] LABS: Occult Blood Positive (Negative)
[2021-09-02 15:31] LABS: Anion Gap 17 mmol/L (8-16); Calcium 8.4 mg/dL (8.5-10.1); Carbon Dioxide 24 mmol/L (21-32); Chloride 115 mmol/L (98-108); Estimated CRCL calculation 6 ml/min; Estimated Glomerular Filt Rate 5; Glucose 91 mg/dL (70-99); Potassium 4.7 mmol/L (3.5-5.1); Sodium 156 mmol/L (136-145)
[2021-09-02 15:41] LABS: Lactic Acid 3.3 mmol/L (0.4-2.0)
--- NOTE | 2021-09-02 16:02 | PCPTNOTE ---
06/02/22 - no plan of care needed at this time, as patient is not appropriate for skilled inpatient PT. suggest patient continue with hospital care until medically able to DC to group home facility. YashTF
[2021-09-02 16:23] LABS: Blood Urea Nitrogen > 150 mg/dL (7-18); Osmolality Calculated 371 mOsm/kg (285-295)
--- NOTE | 2021-09-02 19:20 | PC.NURSE ---
Upon assessment pt. is lying in bed, turned to side lying position and noted mod. amt liquid dark black/brown stool. Pt cleansed of stool, noted excoriated bottom and groin area. Barrier cream applied, pt is resistive to cleaning, and can clearly state it hurts and tries to pull against rails. Pt is able to follow simple commands and is oriented x1 but has garbled speech and is unclear to understand. IVF infusing per order, call higgins at pt side.
--- NOTE | 2021-09-02 22:41 | PC.NURSE ---
Pt moaning in room for help, wanting placed on bedpan, Pt noted to have oozing liquid stool. Pt cleaned of stool but pt has continuous oozing present p cleaning. Pt is able to roll and follow commands at this time.
[2021-09-03] VITALS: BP 99/41; PULSE 86; RESP 20; TEMP 35.7; O2SAT 94
--- NOTE | 2021-09-03 00:05 | PC.NURSE ---
Pt incontinent of a large amount of liquid, dark brown stool; Pt cleaned and repositioned. IV continues to infuse and garnett is draining dark, katia urine.
--- NOTE | 2021-09-03 01:00 | PC.NURSE ---
Dr. Humphries here with the doppler to check pt's circulation in the left leg.
[2021-09-03] MEDS: DEXTROSE 5%/0.45% SOD CHL 1,000 ML 150 ML IV CONT (01:53)
--- NOTE | 2021-09-03 01:55 | PC.NURSE ---
New bag of D51/2NS infusing at 150 ml/hr
--- NOTE | 2021-09-03 02:20 | PC.NURSE ---
IV Pipracillin 2.25 mg infusing as ordered.
--- NOTE | 2021-09-03 03:00 | PC.NURSE ---
Staff continues to call for bed availability to transfer patient.
[2021-09-03] MEDS: HEPARIN SODIUM 5,000 UNITS/ML VIAL 4000 UNITS IV PUSH (03:17)
[2021-09-03] MEDS: HEPARIN SOD/D5W 100 UNITS/ML 25,000 UNITS/250 ML BAG 8 UNITS IV CONT (03:20)
--- NOTE | 2021-09-03 03:20 | PC.NURSE ---
New order for heparin; Pt given heparin bolus 4000 units IVP as ordered. Heparin drip started at 800 units 8 ml/hr.
[2021-09-03 04:00] VITALS: BP 89/60; PULSE 65; RESP 20; TEMP 36.3; O2SAT 93
--- NOTE | 2021-09-03 05:10 | PC.NURSE ---
Pt incontinent of a large amount of dark, brown liquid stool. Pt cleaned and repositioned. Mcdaniel draining tea-colored urine.
--- NOTE | 2021-09-03 05:55 | PC.NURSE ---
[facility] in [place], [place] called back and agreed to take patient; Pt's daughter, Nannette Chavez notified and was agreeable to the transfer.
--- NOTE | 2021-09-03 06:15 | PC.NURSE ---
[facility] called to get report on pt; Report given at this time.
[2021-09-03 06:23] LABS: Hematocrit 57.2 % (37.0-46.0); Immature Platelet Fraction Pct 7.3 % (1.0-7.0); Mean Corpuscular HGB Conc 31.5 g/dL (32.0-36.0); Mean Corpuscular Hemoglobin 29.6 pg (27.0-31.0); Mean Corpuscular Volume 94.1 fL (78.0-102.0); Platelet Count Result 87 K/mm3 (150-420); Red Blood Count 6.08 M/mm3 (4.70-6.10); Red Cell Distribution Width 14.7 % (11.6-14.4); White Blood Count 17.3 K/mm3 (4.8-10.8)
[2021-09-03 06:37] LABS: Lactic Acid Reflex 3.3 mmol/L (0.4-2.0)
--- NOTE | 2021-09-03 06:45 | PC.NURSE ---
[facility] here to take pt to [facility] in [place]. Report given at this time.
[2021-09-03 06:57] LABS: Alanine Aminotransferase 44 U/L (16-63); Albumin Level 1.6 g/dL (3.4-5.0); Alkaline Phosphatase 136 U/L (46-116); Anion Gap 21 mmol/L (8-16); Aspartate Amino Transferase 118 U/L (15-37); Bilirubin,Total 1.7 mg/dL (0.00-1.00); Carbon Dioxide 20 mmol/L (21-32); Chloride 112 mmol/L (98-108); Estimated CRCL calculation 6 ml/min; Estimated Glomerular Filt Rate 6; Glucose 100 mg/dL (70-99); NT Pro B Type Natriuretic Pept 3116 pg/mL (0-450); Potassium 4.7 mmol/L (3.5-5.1); Sodium 153 mmol/L (136-145); Total Protein 5.8 g/dL (6.4-8.2)
[2021-09-03 07:06] LABS: Blood Urea Nitrogen > 150 mg/dL (7-18); Creatine Kinase 2564 U/L (39-308); Osmolality Calculated 365 mOsm/kg (285-295)
--- NOTE | 2021-09-03 07:10 | PC.NURSE ---
Report given to EMS ([facility]). All questions answered. Pt transferred to stretcher and left with IV fluids and heparin infusing.
[2021-09-03 07:30] VITALS: O2SAT 95
[2021-09-03 09:18] LABS: Reflex Lactic Acid Yes or No Add Lactic
--- NOTE | 2021-09-03 12:50 | PM.TDS ---
Transfer Discharge Sum: Prov Provider Date of admission: 09/01/21 14:00 Primary care physician: UNKNOWN,DOCTOR Admitting clinician: Norbert Starkey MD Consults: 09/02/21 Wound/ET Consult Routine Reason for Consult:: multiple excoriation sites DS: Admitting Diagnosis Discharge Date 09/03/2021 Admitting Diagnosis Acute Dehydration, Hypernatremia, Hypothermia, Sepsis, Rhabdomyolysis, Acute Renal Failure DS: Discharge Diagnosis Discharge Diagnosis (1) Sepsis: Code(s): A41.9 - Sepsis, unspecified organism Status: Acute Assessment and Plan: Hypothermia, Hypotensive, Hyperpnea, Leukocytosis, Pt was found covered in feces, multiple areas of excoriations about his body (see nurses photo documentation), Rhabdomyolysis, IVF as noted below under Dehydration, Acute Renal Failure, and Hypernatremia, Zosyn, WBC 17.3, LA 3.3 (2) Hypothermia: Code(s): T68.XXXA - Hypothermia, initial encounter Status: Acute Assessment and Plan: Initial temp on arrival was 94.1`F with lowest temp being 93.8`F 09/03/2021 temp 97.3`F, RLE felt warmer today, LLE remains cold to touch, Pt being transferred to [facility] (3) Rhabdomyolysis: Qualifiers: Rhabdomyolysis type: non-traumatic Qualified Code(s): M62.82 - Rhabdomyolysis Code(s): M62.82 - Rhabdomyolysis Status: Acute Assessment and Plan: Creatinine Kinase 531, 1971, Pt had 3 Liters NS in ER then D5W at 100 which was changed this AM to D51/2NS @ 150/h for increased hydration for his Rhabdomyolysis while not decreasing his Sodium levels too fast. 09/03/2021 Increased to 2564, continue with IVF hydration (4) Acute renal failure: Qualifiers: Acute renal failure type: unspecified Qualified Code(s): N17.9 - Acute kidney failure, unspecified Code(s): N17.9 - Acute kidney failure, unspecified Status: Acute Assessment and Plan: Cr 11.75 on arrival now 10.57, As noted under Rhabdomyolysis IVFs now D51/2NS @ 150/h for increased hydration without reduction of Sodium too fast. Next BMP at 1500 hours +/-, urine in Mcdaniel is a dark katia color 09/03/2021 Cr improved to 9.29, continue hydration (5) Acute hypernatremia: Code(s): E87.0 - Hyperosmolality and hypernatremia Status: Acute Assessment and Plan: Na 167 upon arrival to ER over 16 hours Na 160, IVF currently D51/2NS @ 150/h as noted above. Next BMP 1500 hours. 09/03/2021 continue to improve, now 153 (6) Acute dehydration: Code(s): E86.0 - Dehydration Status: Acute Assessment and Plan: Osmolality 393 upon arrival now 380, IVFs D51/2NS @150/h after 3 Liters of NS and about 1 Liter NS @100/h total fluids at this point about 5 Liters, Urine is still dark katia, monitoring I&O closely 09/03/2021 continue with IVFs (7) Dementia: Code(s): F03.90 - Unspecified dementia without behavioral disturbance Status: Acute Assessment and Plan: Continue Donepezil (8) COPD (chronic obstructive pulmonary disease): Code(s): J44.9 - Chronic obstructive pulmonary disease, unspecified Status: Acute Assessment and Plan: Stable at this time. Albuterol PRN, will monitor (9) HLD (hyperlipidemia): Code(s): E78.5 - Hyperlipidemia, unspecified Status: Acute Assessment and Plan: Continue Pravastatin (10) Elevated brain natriuretic peptide (BNP) level: Code(s): R79.89 - Other specified abnormal findings of blood chemistry Status: Acute Assessment and Plan: Lungs clear, no peripheral edema, BNP 3101 then 3270 this AM, contributing factors include, age, ARF, Sepsis, Dehydration, and other. 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 09/03/2021 BNP 3116 (11) Thrombocytopenia: Code(s): D69.6 - Thrombocytopenia, unspecified Status: Acute Assessment and Plan: 09/03/2021 PLT 87, possible partly d/t IVFs, monitor and transfuse
--- NOTE | 2021-09-06 07:27 | PC.NURSE ---
pt transferred to [facility]. faxed blood culture preliminary results to main at [phone]
== END 2021-09-03 07:30 | disposition short-term general hospital (02) | DRG 872 ==
LOC: CHSED 13:59 → CHS2ND 15:49
PROVIDERS: Nurse Practitioner Family; Admitting Provider Emergency Medicine; Emergency Provider Emergency Medicine; Visit Provider Emergency Medicine
DX: A41.9 Sepsis, unspecified organism (principal); M62.82 Rhabdomyolysis; N17.9 Acute kidney failure, unspecified; I48.20 Chronic atrial fibrillation, unspecified; I10 Essential (primary) hypertension; E87.0 Hyperosmolality and hypernatremia; T68.XXXA Hypothermia, initial encounter; E86.0 Dehydration; Z20.822 Contact with and (suspected) exposure to COVID-19; I70.90 Unspecified atherosclerosis; D69.6 Thrombocytopenia, unspecified; J44.9 Chronic obstructive pulmonary disease, unspecified; E78.5 Hyperlipidemia, unspecified; R79.89 Other specified abnormal findings of blood chemistry; F03.90 Unspecified dementia, unspecified severity, without behavioral disturbance, psychotic disturbance, mood disturbance, and anxiety
CPT/HCPCS: 36415; 70450; 71045; 80048; 80053; 81001; 82272; 82550; 83605; 83880; 85025; 85027; 85055; 85610; 85730; 86140; 87040; 87147; 87186; 93005; 93922; 96360; 96361; 97162; 97165; 99285; A9270; C9803; J1644; J2543; J7030; J7070; J7121; U0003; U0005